=== PATIENT | female | born 1970 | race Caucasian/White ===

== ENCOUNTER 2021-01-17 22:07 | Emergency (ER) | payer OTHER, MEDICAID ==
[2021-01-17] MEDS ORDERED: Sodium Chloride 0.9% 10 ML Syringe FLUSH PRN (22:13)
[2021-01-17] MEDS ORDERED: Ondansetron 4 MG/2 ML SDV IVPUSH ONE (22:13)
[2021-01-17] MEDS ORDERED: fentaNYL 100 MCG/2 ML SDV IVPUSH ONE ×2 (22:13→23:04)
[2021-01-17] MEDS ORDERED: Lactated Ringers 1,000 ML IV SCH (22:15)
[2021-01-17] MEDS ORDERED: fentaNYL 100 MCG/2 ML SDV ONE (22:15)
[2021-01-17] MEDS ORDERED: Ondansetron 4 MG/2 ML SDV ONE (22:15)
[2021-01-17] MEDS ORDERED: Sodium Chloride 0.9% 10 ML Syringe FLUSH ONE (22:19)
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
[2021-01-17] MEDS ORDERED: Sodium Chloride 0.9% 80 ML IV SCH (22:30)
[2021-01-17] MEDS ORDERED: Iopamidol 612 MG/ML 100 ML Bottle IV SCH (22:30)
[2021-01-17] MEDS ORDERED: Ketamine 500 MG/5 ML MDV IV ONE (23:36)
[2021-01-17] MEDS ORDERED: HYDROmorphone 1 MG/ML Syringe IVPUSH ONE (23:36)
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
== END 2021-01-18 00:40 ==
LOC: JP.ED 22:07
DX: S22.42XA Multiple fractures of ribs, left side, initial encounter for closed fracture (principal); S27.0XXA Traumatic pneumothorax, initial encounter; I10 Essential (primary) hypertension; V20.5XXA Motorcycle passenger injured in collision with pedestrian or animal in traffic accident, initial encounter
CPT/HCPCS: 36415; 71260; 74177; 80048; 85025; 96374; 96375; 96376; 99285; J1170; J2405; J3010; Q9967

== ENCOUNTER 2022-04-27 19:27 | Emergency (ER) | payer MEDICAID ==
[2022-04-27] MEDS ORDERED: Prochlorperazine 10 MG/2 ML SDV IVPUSH ONE (20:06)
[2022-04-27] MEDS ORDERED: Sodium Chloride 0.9% 10 ML Syringe FLUSH PRN (20:06)
[2022-04-27] MEDS ORDERED: Ketorolac 30 MG/ML SDV IVPUSH ONE (20:06)
[2022-04-27] MEDS ORDERED: Sodium Chloride 0.9% 1,000 ML IV SCH (20:15)
[2022-04-27 21:02] LABS: ESTIMATED GFR 60 mL/min (>60); TROPONIN I HIGH SENSITIVITY 4.7 pg/mL (<=60.3)
== END 2022-04-27 21:40 | disposition home or self-care (01) ==
LOC: JP.ED 19:27
DX: G43.019 Migraine without aura, intractable, without status migrainosus (principal); I10 Essential (primary) hypertension; E07.81 Sick-euthyroid syndrome; Z20.822 Contact with and (suspected) exposure to COVID-19
CPT/HCPCS: 36415; 80053; 83735; 84439; 84443; 84484; 85025; 86140; 87635; 93005; 96361; 96374; 96375; 99284; J0780; J1885; J7030; U0002